=== PATIENT | male | born 1970 | race Hispanic/Latino ===

== ENCOUNTER 2018-08-27 12:11 | Observation (INO) | payer SELFPAY ==
[2018-08-27 13:07] LABS: #Basophils 0.1 thou/uL (0.0-0.2); #Eosinphils 0.3 thou/uL (0.0-0.7); #Lymphocytes 2.8 thou/uL (1.20-3.40); #Monocytes 0.5 thou/uL (0.11-0.59); %Basophils 1.1 % (0.0-1.0); %Lymphocytes 42.4 % (21.0-51.0); %Monocytes 6.9 % (0.0-10.0); %Neutrophils 45.6 % (42.0-75.0); Hemoglobin 15.5 g/dL (14.0-18.0); Mean Corpuscular HGB CONC 33.2 g/dL (32.0-36.0); Mean Corpuscular Hemoglobin 28.5 pg (27.0-31.0); Mean Corpuscular Volume 85.8 fL (78.0-98.0); Mean Platelet Volume 7.6 fL (7.4-10.4); Platelet Count 326 thou/uL (130-400); RBC Distribution Width 12.8 % (11.5-14.5); Red Blood Cell (RBC) Count 5.45 mill/uL (4.70-6.10); White Blood Cell (WBC) Count 6.6 thou/uL (4.8-10.8)
--- NOTE | 2018-08-27 13:27 | RAD ---
TWO VIEWS CHEST: DATE: 08/27/2018. PROVIDED CLINICAL HISTORY: Chest pain. FINDINGS: The cardiac and mediastinal silhouette is within normal limits. Lungs appear clear. No pleural flui d or pneumothorax apparent. IMPRESSION: No evidence for an acute cardiopulmonary process. POS: [facility]
[2018-08-27 13:32] LABS: ALT (SGPT) 134 U/L (8-55); AST (SGOT) 51 U/L (5-34); Albumin 4.5 g/dL (3.5-5.0); Alkaline Phosphatase 110 U/L (40-150); Anion Gap 9 mmol/L (10-20); BUN (Urea Nitrogen) 13 mg/dL (8.9-20.6); Bilirubin, Total 0.8 mg/dL (0.2-1.2); CK (CPK) 124 U/L (30-200); Calc. Creatinine Clearance 0 mL/min (70-130); Calcium 9.7 mg/dL (7.8-10.44); Carbon Dioxide 28 mmol/L (22-29); Chloride 107 mmol/L (98-107); Estimated GFR-MDRD Greater than 90; Globulin 2.5 g/dL (2.4-3.5); Glucose 86 mg/dL (70-105); Potassium 4.1 mmol/L (3.5-5.1); Sodium 140 mmol/L (136-145)
[2018-08-27] MEDS ORDERED: Aspirin Chewable 81 MG TAB ONE (14:19)
[2018-08-27] MEDS ORDERED: Nitroglycerin 2% Ointment 1 INCH/1 GM Packet ONE (14:19)
[2018-08-27] MEDS ORDERED: Ondansetron ODT 4 MG TAB SL PRN (15:00)
[2018-08-27] MEDS ORDERED: Ondansetron PF 4 MG/2 ML Vial IVP PRN (15:00)
[2018-08-27] MEDS ORDERED: HYDROcodone/Acetaminophen 5/325 mg Tablet PO PRN ×2 (15:00)
[2018-08-27] MEDS ORDERED: Acetaminophen 325 MG TAB PO PRN ×2 (15:00→17:56)
[2018-08-27 16:48] LABS: Troponin I Less than 0.010 ng/mL (< 0.028)
[2018-08-27 19:25] LABS: Troponin I Less than 0.010 ng/mL (< 0.028)
[2018-08-27] MEDS: Famotidine 20 MG TAB PO SCH (21:17)
--- NOTE | 2018-08-27 22:45 | HP ---
PRIMARY CARE PHYSICIAN: The patient currently does not have a primary care physician. CHIEF COMPLAINT: Chest pain. HISTORY OF PRESENT ILLNESS: Mr. Kuo is a pleasant 48-year-old gentleman, who has no significant past medical history. He says that yesterday, he began having some pain primarily when he moved his arm while he was doing some cleaning. The pain was in the chest and it was a pulsating type pain. It was associated with some dyspnea but no nausea, no vomiting, no diaphoresis. The pain stayed primarily in the chest area and there was no radiation. He had the pain again today, but it was not quite as bad as yesterday. It did improve with some Tylenol and rest. He also noted some numbness in his arm as well. He says that as a result of the pain, he wanted to come and get it checked out and he is being placed in observation for this. The patient also denies any lower extremity edema. No PND. No orthopnea. REVIEW OF SYSTEMS: All systems were reviewed and are negative except for that mentioned in the history of present illness. PAST MEDICAL HISTORY: No history of any significant illnesses. PAST SURGICAL HISTORY: Negative. ALLERGIES: NO KNOWN DRUG ALLERGIES. FAMILY HISTORY: No known history of any coronary artery disease. SOCIAL HISTORY: He is a nonsmoker and nondrinker. He is and he is a full code. CURRENT MEDICATIONS: None. PHYSICAL EXAMINATION: GENERAL: He is alert and oriented. He appears to be in no acute distress. He is well developed and well nourished. VITAL SIGNS: Blood pressure was 137/96, heart rate 70, respiratory rate of 16, temperature is 98.4. HEENT: Pupils are equal, round, and reactive. Extraocular muscles are intact. Sclerae anicteric. Throat, there is no erythema, no exudates. NECK: No adenopathy. No bruits. LUNGS: Clear to auscultation. There is no wheezing, no rales, no rhonchi. CARDIOVASCULAR: He had normal S1 and S2. I did not appreciate an S3 or S4. No murmurs, clicks, or rubs. ABDOMEN: Soft, it is nontender and nondistended. Positive for bowel sounds. There is no rebound, no guarding, no organomegaly. EXTREMITIES: There is no clubbing or cyanosis. No edema. NEUROLOGICAL: His cranial nerves 2 through 12 are grossly intact. Muscle strength is 5/5 in both his upper and lower extremities. SKIN AND INTEGUMENT: There are no skin changes. No rash. LABORATORY RESULTS: Sodium 140, potassium 4.1, chloride is 107, CO2 is 28, BUN of 13, creatinine 0.86, glucose is 86, alkaline phosphatase is 110, AST is 51, ALT is 134. Troponin is 0.010. White blood cell count 6.6, hemoglobin 15.5, hematocrit is 46.8, and platelet count is 326. On his EKG, it is sinus rhythm, the rate is 59. He had T-wave inversion in lead 3. Otherwise, no other ST-wave abnormalities. He also had a chest x-ray, which showed a normal heart size. There was no evidence of any infiltrates or effusion. He did have some mild flattening of the diaphragms. ASSESSMENT: This is a pleasant 48-year-old gentleman, who presents to the emergency room complaining of chest pain. It is somewhat atypical in presentation. However, he did have pain with exertion which appeared to be relieved with some rest. Given that he does not have a primary care physician, we will go ahead and place him in observation and rule him out for potential ischemic heart disease. We will go ahead and get another set of cardiac enzymes. Place him on aspirin and nitrates as tolerated. Check a lipid panel and get a stress test for further risk stratification. Job ID: [id number]
[2018-08-28] MEDS: Nitroglycerin 2% Ointment 1 INCH/1 GM Packet TOP SCH ×3 (00:45→14:28)
[2018-08-28 06:00] LABS: #Eosinphils 0.3 thou/uL (0.0-0.7); #Lymphocytes 2.2 thou/uL (1.20-3.40); #Monocytes 0.5 thou/uL (0.11-0.59); #Neutrophils 6.2 thou/uL (1.40-6.50); %Basophils 0.4 % (0.0-1.0); %Lymphocytes 24.5 % (21.0-51.0); %Neutrophils 67.1 % (42.0-75.0); Hemoglobin 15.2 g/dL (14.0-18.0); Mean Corpuscular HGB CONC 33.4 g/dL (32.0-36.0); Mean Corpuscular Hemoglobin 28.8 pg (27.0-31.0); Mean Corpuscular Volume 86.1 fL (78.0-98.0); Mean Platelet Volume 7.7 fL (7.4-10.4); Platelet Count 313 thou/uL (130-400); RBC Distribution Width 12.9 % (11.5-14.5); Red Blood Cell (RBC) Count 5.29 mill/uL (4.70-6.10); White Blood Cell (WBC) Count 9.2 thou/uL (4.8-10.8)
[2018-08-28 06:14] LABS: Anion Gap 10 mmol/L (10-20); BUN (Urea Nitrogen) 19 mg/dL (8.9-20.6); Calc. Creatinine Clearance 111 mL/min (70-130); Calcium 9.4 mg/dL (7.8-10.44); Carbon Dioxide 26 mmol/L (22-29); Cardiac Risk 5.6 (Less than 4.5); Chloride 108 mmol/L (98-107); Cholesterol 195 mg/dl (< 200 Desired); Estimated GFR-MDRD Greater than 90; Glucose 93 mg/dL (70-105); HDL Cholesterol 35 mg/dL (>60 Neg Risk); LDL Cholesterol, Calculated 125 mg/dL; Sodium 140 mmol/L (136-145); Triglycerides 174 mg/dL (Less than 150)
[2018-08-28] MEDS ORDERED: Aspirin 325 MG TAB PO SCH (09:00)
[2018-08-28] MEDS: Famotidine 20 MG TAB PO SCH (12:17)
[2018-08-28 12:18] VITALS: BP 124/80; TEMP 97.8
--- NOTE | 2018-08-28 14:08 | NM ---
MYOCARDIAL PERFUSION EVALUATION: INDICATION: Chest pain. RADIOPHARMACEUTICAL: 31.7 mCi technetium-99m sestamibi IV with stress and 9.4 mCi technetium-99m sestamibi with rest. FINDINGS: When comparing the rest and stress images, no reversible myocardial perfusion defect is evident. Ther e is normal wall motion and thickening. The estimated LVEF is 77%. IMPRESSION: Normal myocardial perfusion evaluation. POS: [facility]
--- NOTE | 2018-08-28 14:09 | PDOC.PN ---
- Subjective Encounter Start Date: 08/28/18 Encounter Start Time: 14:04 Mr. Kuo was seen today in follow-up of chest pain. He is feeling better. He denies any chest pain. - Objective Resuscitation Status - Order Detail: 08/27/18 16:14 Resuscitation Status Routine Resuscitation Status: FULL: Full Resuscitation MAR Reviewed: Yes Vital Signs & Weight: Vital Signs (12 hours) Temp Pulse Resp BP Pulse Ox 08/28/18 12:03 97.8 F 68 16 124/80 97 08/28/18 07:42 97.4 F L 61 18 126/82 96 08/28/18 03:58 97.8 F 67 18 110/67 96 Weight Weight 163 lb 8 oz I&O: 08/27/18 08/28/18 08/29/18 06:59 06:59 06:59 Intake Total 600 Balance 600 Result Diagrams: 08/28/18 05:30 08/28/18 05:30 Phys Exam - Physical Examination HEENT: PERRLA Respiratory: no wheezing, no rales, no rhonchi, clear to auscultation bilateral Cardiovascular: RRR, no significant murmur, no rub Gastrointestinal: soft, non-tender, no distention, positive bowel sounds Musculoskeletal: no edema Dx/Plan (1) Chest pain Code(s): R07.9 - CHEST PAIN, UNSPECIFIED Status: Acute (2) Depression Code(s): F32.9 - MAJOR DEPRESSIVE DISORDER, SINGLE EPISODE, UNSPECIFIED Status : Acute (3) Anxiety Code(s): F41.9 - ANXIETY DISORDER, UNSPECIFIED Status: Acute - Plan * Chest pain- probable non-cardiac * Depression and anxiety- will start Zoloft * He will need close outpatient follow-up.
--- NOTE | 2018-08-29 03:06 | DIS ---
DATE OF ADMISSION: 08/27/2018 DATE OF DISCHARGE: 08/28/2018 PRIMARY CARE PHYSICIAN: The patient does not have a primary care physician. DISCHARGE DISPOSITION: Home. PRIMARY DISCHARGE DIAGNOSES: 1. Chest pain. 2. Depression. 3. Anxiety. DISCHARGE MEDICATIONS: Include Zoloft 50 mg daily. PROCEDURES DONE DURING THE ADMISSION: The patient had a nuclear stress test which was negative for any reversible ischemia. CODE STATUS: Full code. ALLERGIES: NO KNOWN DRUG ALLERGIES. HOSPITAL COURSE: Mr. Kuo is a pleasant 48-year-old gentleman who has no significant past medical history. He presented to the emergency room complaining of pain in the left side of his chest. The full details of which are outlined in the history and physical. This was related to exertion. However, it was reproducible on exam. Also, further history was obtained and it was found that he has been under quite a bit of stress lately. Has had episodes where when he has stress, he typically has chest pain and the stress is related to the recent of his father. Every time, he thinks of his father's , he tends to get stressed out, depressed, and will have chest pain. For this reason, he was started on Zoloft, and he was counseled on the stress and also some community resources were given to the patient as well and he is also given community resources for medical followup. The patient was clinically stable at the time of discharge and was discharged on 08/28/2018. Job ID: [id number]
== END 2018-08-28 16:54 | disposition home or self-care (01) ==
LOC: ERS 12:11 → 2SW 17:20
PROVIDERS: ADMIT Internal Medicine; ATTEND Internal Medicine
DX: R07.9 Chest pain, unspecified (principal); F32.9 Major depressive disorder, single episode, unspecified; F41.9 Anxiety disorder, unspecified; Z79.899 Other long term (current) drug therapy
CPT/HCPCS: 36415; 71046; 78452; 80048; 80053; 80061; 82550; 84484; 85025; 93005; 93017; 94760; A9500; G0378